=== PATIENT | female | born 1995 | race Caucasian/White ===

== ENCOUNTER 2021-11-11 12:59 | Emergency (ER) | payer BC ==
[~2021-11-11] VITALS: Ht 160 cm; Wt 68.0 kg
[2021-11-11 13:07] VITALS: BP 90/58
--- NOTE | 2021-11-11 13:12 | NUR ---
PT AMB TO BED 12.
--- NOTE | 2021-11-11 13:20 | NUR ---
SHANNEN AT BEDSIDE
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
[2021-11-11] MEDS ORDERED: NAPR-54 PO (13:34)
[2021-11-11] MEDS ORDERED: AMOX-999 PO (13:34)
[2021-11-11] MEDS ORDERED: BACITRACIN OINT 500 UNITS/GM PKT TP ONE (13:35)
[2021-11-11 14:15] VITALS: BP 90/58
--- NOTE | 2021-11-11 14:18 | NUR ---
Patient discharged with v/s stable. Written and verbal after care instructions given and explained. Patient alert, oriented and verbalized understanding of instructions. Ambulatory with steady gait. All questions addressed prior to discharge. ID band removed. Patient advised to follow up with PMD. Rx of AUGMENTIN AND NAPROXEN given. Patient educated on indication of medication including possible reaction and side effects. Opportunity to ask questions provided and answered.
--- NOTE | 2021-11-11 14:23 | NUR ---
BITE REPORT FAXED OVER TO [facility]
--- NOTE | 2021-11-11 14:54 | NUR ---
ANIMAL BITE REPORT FAXED
== END 2021-11-11 14:15 | disposition home or self-care (01) ==
LOC: MED 12:59
DX: S61.451A Open bite of right hand, initial encounter (principal); Z79.899 Other long term (current) drug therapy; Z88.1 Allergy status to other antibiotic agents; W54.0XXA Bitten by dog, initial encounter; Y93.89 Activity, other specified; Y92.89 Other specified places as the place of occurrence of the external cause; Y99.8 Other external cause status
CPT/HCPCS: 99283